=== PATIENT | male | born 1945 | race African-American/Black ===

== ENCOUNTER 2020-09-24 12:32 | Emergency (ER) | payer OTHER ==
[2020-09-24 12:45] VITALS: BP 143/83; PULSE 80; TEMP 98.4; BMI 22.0
[2020-09-24] MEDS ORDERED: ACETAMINOPHEN 500 MG TABLET (FP) PO ONE (13:06)
[2020-09-24] MEDS ORDERED: ACETAMINOPHEN 500 MG TABLET (FP) ONE (13:24)
== END 2020-09-24 14:39 | disposition home or self-care (01) ==
LOC: FER 12:32
DX: G57.02 Lesion of sciatic nerve, left lower limb (principal)
CPT/HCPCS: 72100-TC-FY; 99284-25

== ENCOUNTER 2020-09-25 08:01 | Inpatient (IN) | payer OTHER ==
[2020-09-25 08:09] VITALS: BMI 24.9
[2020-09-25] MEDS ORDERED: ACETAMINOPHEN 500 MG TABLET (FP) PO ONE (08:48)
[2020-09-25] MEDS ORDERED: ACETAMINOPHEN 1000 MG/100 ML BAG IVPB ONE (09:03)
[2020-09-25] MEDS ORDERED: morphine CARPU-JECT 4 MG/1 ML DISP.SYRIN IVPUSH ONE (09:16)
[2020-09-25] MEDS ORDERED: DEXAMETHASONE SOD PHOSPHATE 4 MG/1 ML VIAL IVPUSH ONE (09:16)
[2020-09-25] MEDS ORDERED: DEXAMETHASONE SOD PHOSPHATE 4 MG/1 ML VIAL ONE (09:40)
[2020-09-25] MEDS ORDERED: morphine SULFATE 4 MG/ML VIAL ONE (09:40)
[2020-09-25] MEDS ORDERED: ACETAMINOPHEN INJECTION 100 ML IVPB ONE (09:41)
[2020-09-25 09:49] LABS: BASO % 0.6 % (0-2.0); EOS % 0.1 % (0-4.5); HEMATOCRIT 40.4 % (35.4-49); HEMOGLOBIN 13.6 GM/dL (11.7-16.9); LYMPH % 13.5 % (8-40); MCH 30.5 pg (25.7-33.7); MCHC 33.7 g/dl (32.0-35.9); MEAN CELL VOLUME 90.5 fl (80-96); MEAN PLT VOLUME 9.7 fl (7.5-11.1); MONO % 3.6 % (3.8-10.2); NEUT % 82.2 % (42.8-82.8); PLATELET COUNT 156 K/MM3 (134-434); RBC 4.46 M/mm3 (4.00-5.60); RDW 13.1 % (11.9-15.9)
[2020-09-25 10:07] LABS: ALBUMIN 3.7 g/dl (3.4-5.0); BLOOD UREA NITROGEN 9.2 mg/dL (7-18); CALCIUM 8.9 mg/dL (8.5-10.1)
[2020-09-25 10:12] LABS: BILIRUBIN,TOTAL 0.6 mg/dL (0.2-1); TOT PROT 6.8 g/dl (6.4-8.2)
[2020-09-25] MEDS ORDERED: HEPARIN NA (PORCINE) 5,000 UNITS/ML 1ML VIAL ONE ×2 (14:50→22:00)
[2020-09-25] MEDS ORDERED: GABAPENTIN 100 MG CAPSULE ONE ×2 (14:50→21:59)
[2020-09-25] MEDS: GABAPENTIN 100 MG CAPSULE PO SCH ×2 (16:00→23:03)
[2020-09-25] MEDS: HEPARIN NA (PORCINE) 5,000 UNITS/ML 1ML VIAL SQ SCH ×2 (16:15→23:03)
[2020-09-25] MEDS ORDERED: NAPROXEN 375 MG TABLET PO SCH (22:00)
[2020-09-26] MEDS ORDERED: GABAPENTIN 100 MG CAPSULE ONE ×2 (06:07→15:10)
[2020-09-26] MEDS ORDERED: HEPARIN NA (PORCINE) 5,000 UNITS/ML 1ML VIAL ONE (06:07)
[2020-09-26 06:08] LABS: BASO % 0.7 % (0-2.0); EOS % 0.1 % (0-4.5); HEMATOCRIT 41.9 % (35.4-49); HEMOGLOBIN 14.4 GM/dL (11.7-16.9); LYMPH % 27.8 % (8-40); MCH 30.6 pg (25.7-33.7); MCHC 34.3 g/dl (32.0-35.9); MEAN CELL VOLUME 89.2 fl (80-96); MEAN PLT VOLUME 9.8 fl (7.5-11.1); MONO % 8.3 % (3.8-10.2); NEUT % 63.1 % (42.8-82.8); PLATELET COUNT 161 K/MM3 (134-434); RBC 4.69 M/mm3 (4.00-5.60); RDW 12.9 % (11.9-15.9); WHITE BLOOD COUNT 7.3 K/mm3 (4.0-10.0)
[2020-09-26 06:27] LABS: INR 1.19 (0.83-1.09); PROTHROMBIN TIME (PATIENT) 14.3 SEC (9.7-13.0)
[2020-09-26 06:32] LABS: ALBUMIN 3.5 g/dl (3.4-5.0); BLOOD UREA NITROGEN 11.7 mg/dL (7-18); MAGNESIUM 1.7 mg/dL (1.8-2.4)
[2020-09-26 06:35] LABS: PHOSPHOROUS 3.4 mg/dL (2.5-4.9)
[2020-09-26] MEDS: GABAPENTIN 100 MG CAPSULE PO SCH ×2 (06:36→15:15)
[2020-09-26] MEDS: HEPARIN NA (PORCINE) 5,000 UNITS/ML 1ML VIAL SQ SCH (06:36)
[2020-09-26 06:37] LABS: BILIRUBIN,TOTAL 0.6 mg/dL (0.2-1); TOT PROT 6.6 g/dl (6.4-8.2)
[2020-09-26 06:50] VITALS: BP 168/97; PULSE 74; TEMP 98
[2020-09-26] MEDS ORDERED: oxyCODONE HCL 5 MG TABLET PO PRN (08:24)
[2020-09-26] MEDS ORDERED: ACETAMINOPHEN 1000 MG/100 ML BAG IVPB PRN (08:25)
[2020-09-26] MEDS ORDERED: LIDOCAINE 5% TOPICAL PATCH TP SCH (10:00)
[2020-09-26] MEDS ORDERED: LIDOCAINE 5% TOPICAL PATCH ONE (11:30)
[2020-09-26] MEDS ORDERED: LIDOCAINE PATCH REMOVAL MC SCH (22:00)
== END 2020-09-26 17:30 | disposition home or self-care (01) | DRG 74 ==
LOC: JER 08:01 → OBSVTOIN 12:58 → JERBED 12:58
PROVIDERS: ADMIT Internal Medicine; ATTEND Nurse Practitioner Acute Care
DX: S34.21XA Injury of nerve root of lumbar spine, initial encounter (principal); M51.26 Other intervertebral disc displacement, lumbar region; R26.2 Difficulty in walking, not elsewhere classified; M54.9 Dorsalgia, unspecified; M79.605 Pain in left leg; G57.02 Lesion of sciatic nerve, left lower limb; X58.XXXA Exposure to other specified factors, initial encounter; Y93.9 Activity, unspecified; Y92.9 Unspecified place or not applicable
CPT/HCPCS: 36415; 71045-TC-FY; 72131-TC; 72148-TC; 73523-TC-FY; 73552-TC-LT-FY; 80053; 80061; 83721; 83735; 84100; 85025; 85610; 85730; 93005; 93010; 97116-GP; 97161-GP; 99285-25; C9803; J0131; J1644; U0003